=== PATIENT | female | born 1975 | race Asian ===

== ENCOUNTER 2018-03-31 12:00 | Inpatient (IN) | payer BC ==
[2018-03-31] MEDS ORDERED: ELECTROLYTE-148 SOLN 1,000 ML IV SCH ×2 (15:45)
[2018-03-31] MEDS ORDERED: ELECTROLYTE-148 SOLN 500 ML IV ONE (15:45)
[2018-03-31] MEDS ORDERED: PROMETHAZINE HCL 25 MG/1 ML VIAL IVPUSH ONE (15:47)
[2018-03-31] MEDS ORDERED: BUTORPHANOL TARTRATE 1 MG/ML VIAL IVPUSH ONE (15:47)
--- NOTE | 2018-03-31 15:53 | HP ---
Past Medical History - Admission History of Present Illness: 42 yo @ 38 6/7 wks by first trimester ultrasound, EDC 04/08/2018 complicated by: 1. AMA - declined genetic testing, normal level 2 ultrasound 2. Hx/o Asthma, mild intermittent Patient presents with chief complaint of contractions, which began 2 days ago. She reports increase in intensity and frequency earlier this AM. She reports movement, denies leakage of fluid or vaginal bleeding. History Source: Patient Limitations to Obtaining History: No Limitations - Past Medical History Cardiovascular: No: HTN Pulmonary: Yes: Asthma (albuterol PRN) Gastrointestinal: No: GERD ...: 6 ...Para: 3 ...Term: 3 ...: 0 ...Spon : 2 ...Induced : 0 ...LMP: 07/18/17 ... Weeks Gestation by Dates: 36.4 ...EDC by Dates: 04/24/18 ...EDC by Sono: 04/08/18 Heme/Onc: No: Anemia - Past Surgical History Past Surgical History: Yes: None Hx Myomectomy: No Hx Transabdominal Cerclage: No - Smoking History Smoking history: Never smoked Have you smoked in the past 12 months: No - Alcohol/Substance Use Hx Alcohol Use: No History of Substance Use: reports: None - Social History History of Recent Travel: No Home Medications - Allergies Allergies/Adverse Reactions: Allergies Allergy/AdvReac Type Severity Reaction Status Date / Time No Known Allergies Allergy Verified 03/31/18 13:30 - Home Medications Home Medications: Ambulatory Orders Ferrous Sulfate [Feosol] 325 mg PO DAILY 03/31/18 Vitamins (Sjr) - 1 tab PO DAILY 03/31/18 Family Disease History - Family Disease History Family History: Denies Review of Systems - Review of Systems Constitutional: reports: No Symptoms Neck: reports: No Symptoms Cardiovascular: reports: No Symptoms Respiratory: reports: No Symptoms Gastrointestinal: reports: No Symptoms Genitourinary: reports: No Symptoms Musculoskeletal: reports: No Symptoms Integumentary: reports: No Symptoms Neurological: reports: No Symptoms Endocrine: reports: No Symptoms Hematology/Lymphatic: reports: No Symptoms Psychiatric: reports: No Symptoms Physical Exam - Maternity Vital Signs: Vital Signs Temperature 97.8 F 03/31/18 12:40 Pulse Rate 83 03/31/18 12:40 Respiratory Rate 20 03/31/18 12:40 Blood Pressure 98/74 03/31/18 12:40 O2 Sat by Pulse Oximetry (%) Constitutional: Yes: Well Nourished, No Distress, Calm HENT: Yes: Atraumatic Cardiovascular: Yes: Regular Rate and Rhythm Lungs: Clear to auscultation - Abdominal Exam/OB Fundal Height: 40 Number of Fetuses: Single Presentation: Vertex Contractions: Yes Regularity: Regular Intensity: Mod/Strong Monitor Mode: External Heart Rate (range): 135 Accelerations: Non-Uniform Decelerations: None - Vaginal Exam/OB Vaginal Bleediing: No Dilatation (cm): 6 Amniotic Membrane Status: Intact Presentation: Vertex/Position Station: -3 - Physical Exam Edema: No Psychiatric: Yes: Alert, Oriented - Labs Lab Results: PNL: HIV neg; Hep B negative; Rubella Immune; GC/CT negative; GBS negative; GCT WNL; RPR NR Hemorrhage Risk Assessment - Risk Factors Medium Risk Factors: Yes: None High Risk Factors: Yes: None Risk Score: 1 Risk Level: Medium Risk Assessment/Plan 42 yo P3 in active labor 1. Admit to L&D 2. Consents reviewed and signed 3. GBS negative 4. Category I FHT 5. Will offer pain medication upon patient requet
[2018-03-31 15:57] VITALS: BMI 30.8
[2018-03-31 16:40] LABS: BASO % 0.2 % (0-2.0); EOS % 0.6 % (0-4.5); HEMOGLOBIN 10.8 GM/dL (10.7-15.3); LYMPH % 16.1 % (8-40); MCH 29.1 pg (25.7-33.7); MCHC 34.9 g/dl (32.0-36.0); MEAN CELL VOLUME 83.5 fl (80-96); MEAN PLT VOLUME 9.1 fl (7.5-11.1); MONO % 5.7 % (3.8-10.2); NEUT % 77.4 % (42.8-82.8); PLATELET COUNT 190 K/MM3 (134-434); RBC 3.71 M/mm3 (3.60-5.2); RDW 16.2 % (11.6-15.6); WHITE BLOOD COUNT 8.2 K/mm3 (4.0-10.0)
[2018-03-31 16:47] LABS: INR 1.04 (0.82-1.09); PROTHROMBIN TIME (PATIENT) 11.7 SEC (9.7-13.0)
[2018-03-31 16:49] LABS: ACTIVATED PTT 29.8 SECONDS (26.9-34.4)
[2018-03-31] MEDS ORDERED: FENTANYL/BUPIVACAINE/NS/PF - PCEA - 50 ML DISP.SYRIN EP ONE (16:50)
[2018-03-31 17:53] LABS: ANION GAP 10 (8-16); BLOOD UREA NITROGEN 6 mg/dL (7-18); CALCIUM 8.2 mg/dL (8.5-10.1); CHLORIDE 107 mmol/L (98-107); CO2 22 mmol/L (21-32); CREATININE 0.5 mg/dL (0.55-1.02); GLUCOSE,RANDOM 89 mg/dL (74-106); POTASSIUM 3.8 mmol/L (3.5-5.1); SODIUM 139 mmol/L (136-145)
[2018-03-31] MEDS ORDERED: BISACODYL 10 MG SUPP.RECT RC PRN (18:14)
[2018-03-31] MEDS ORDERED: METHYLERGONOVINE MALEATE 0.2 MG/1 ML AMP IM PRN (18:14)
[2018-03-31] MEDS ORDERED: ACETAMINOPHEN 325 MG TABLET (FP) PO PRN (18:14)
[2018-03-31] MEDS ORDERED: BENZOCAINE 28 GM HEMORRHOIDAL OINTMENT TP PRN (18:14)
[2018-03-31] MEDS ORDERED: IBUPROFEN 600 MG TABLET (FP) PO PRN (18:14)
[2018-03-31] MEDS ORDERED: oxyCODONE HCL 5 MG TABLET PO PRN (18:14)
[2018-03-31] MEDS ORDERED: WITCH HAZEL 50% (TUCKS) 40 PAD/JAR PAD TP PRN (18:14)
[2018-03-31] MEDS ORDERED: BENZOCAINE 20% 57 GM BOTTLE TP PRN (18:14)
[2018-03-31] MEDS ORDERED: OXYTOCIN 20 UNITS in 0.9% NS 20 UNIT/1,000 ML INFUS.BAG IV SCH (18:15)
--- NOTE | 2018-03-31 18:18 | PN ---
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 Weight and length unknown at this time. Head delivered spontaneously tight nuchal cord noted, shoulders and body delivered through without difficulty. Infant with spontaneous cry and placed on mother's abdomen. Nose and mouth was bulb suctioned. Cord was clamped and cut. Perineum and vagina examined, a second laceration was noted and repaired in the usual fashion. Rectal exam revealed no sutures in rectum. Placenta was delivered spontaneously and intact. 20 units of pitocin in 1 L IVF was given. All counts correct x 2. Mother and infant stable in LDR. EBL 400cc.
[2018-04-01 09:05] LABS: BASO % 0.2 % (0-2.0); EOS % 0.3 % (0-4.5); HEMATOCRIT 27.4 % (32.4-45.2); HEMOGLOBIN 9.2 GM/dL (10.7-15.3); MCH 28.7 pg (25.7-33.7); MCHC 33.6 g/dl (32.0-36.0); MEAN CELL VOLUME 85.4 fl (80-96); MEAN PLT VOLUME 8.8 fl (7.5-11.1); MONO % 7.3 % (3.8-10.2); NEUT % 79.2 % (42.8-82.8); PLATELET COUNT 154 K/MM3 (134-434); RBC 3.21 M/mm3 (3.60-5.2); RDW 16.2 % (11.6-15.6); WHITE BLOOD COUNT 11.4 K/mm3 (4.0-10.0)
[2018-04-01] MEDS: PRENATAL VITAMINS W/ FOLIC ACID TABLET (FP) PO SCH (09:31)
--- NOTE | 2018-04-01 09:40 | PN ---
Post Progress Note - Subjective Subjective: Patient without acute complaints. Reports tolerating oral intake without nausea or vomiting. Ambulating without dizziness. Denies fevers or chills. Pain well controlled with oral pain medication. without difficulty. Passing flatus. Type of Delivery: Vital Signs: Vital Signs Temperature 98.1 F 03/31/18 21:00 Pulse Rate 66 03/31/18 21:00 Respiratory Rate 20 03/31/18 21:00 Blood Pressure 113/73 03/31/18 21:00 O2 Sat by Pulse Oximetry (%) 100 03/31/18 18:45 Breast Exam: Yes: Soft Uterus: Yes: Fundus Firm, Fundus below umbilicus Abdomen/GI: Yes: Abdomen soft, Passing flatus, Tolerating PO. No: Abdominal Distention, Tender Lochia: Yes: Serosa Lochia, amount: Small Extremities: Yes: Calves non-tender. No: Edema Perineum: Yes: Laceration Activity: Ambulating - Labs Labs: CBC WBC 8.2 K/mm3 (4.0-10.0) 03/31/18 15:00 RBC 3.71 M/mm3 (3.60-5.2) 03/31/18 15:00 Hgb 10.8 GM/dL (10.7-15.3) D 03/31/18 15:00 Hct 31.0 % (32.4-45.2) L 03/31/18 15:00 MCV 83.5 fl (80-96) 03/31/18 15:00 MCH 29.1 pg (25.7-33.7) 03/31/18 15:00 MCHC 34.9 g/dl (32.0-36.0) 03/31/18 15:00 RDW 16.2 % (11.6-15.6) H 03/31/18 15:00 Plt Count 190 K/MM3 (134-434) D 03/31/18 15:00 MPV 9.1 fl (7.5-11.1) 03/31/18 15:00 Absolute Neuts (auto) 6.4 # 03/31/18 15:00 Neutrophils % 77.4 % (42.8-82.8) 03/31/18 15:00 Lymphocytes % 16.1 % (8-40) 03/31/18 15:00 Monocytes % 5.7 % (3.8-10.2) 03/31/18 15:00 Eosinophils % 0.6 % (0-4.5) 03/31/18 15:00 Basophils % 0.2 % (0-2.0) 03/31/18 15:00 Nucleated RBC % 0 % (0-0) 03/31/18 15:00 Assessment/Plan 42 yo PPD # 1 s/p , afebrile, vital signs stable, doing well 1. Continue routine care. 2. AM CBC with mild anemia; patient asymptomatic at this time. 3. Rh positive status, no rhogam indicated. 4. Encourage ambulation 5. Continue oral pain medication 6. Anticipate discharge home day #2
--- NOTE | 2018-04-01 09:53 | DS ---
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 Signs: Vital Signs Temperature 98.1 F 03/31/18 21:00 Pulse Rate 66 03/31/18 21:00 Respiratory Rate 20 03/31/18 21:00 Blood Pressure 113/73 03/31/18 21:00 O2 Sat by Pulse Oximetry (%) 100 03/31/18 18:45 Labs: CBC, BMP 04/01/18 06:00 03/31/18 15:00 Delivery - Delivery Vaginal Delivery: No Problems Type of Anesthesia: Local Episiotomy/Laceration: 2nd degree EBL (cc): 400 Delivery, Single - Stages of Labor Date 1st Stage Initiatied: 03/31/18 Time 1st Stage Initiated: 02:30 Date 2nd Stage Initiated: 03/31/18 Time 2nd Stage Initiated: 17:15 Date of Delivery: 03/31/18 Time of Delivery: 17:49 Time Placenta Delivered: 18:00 Placenta: Yes: Spontaneous, Expressed - Condition 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 Progressed to deliver viable male via . PPD # 1 patient ambulated, voiding, passing gas, tolerating oral intake and with adequate pain control. Noted to have mild asymptomatic anemia She fulfilled all criteria for discharge PPD #2 Condition: Good - Instructions Diet, Activity, Other Instructions: Physical activity Resume your normal everyday activity as tolerated no heavy lifting or exercise until seen by your surgeon. You may walk unlimited rajendra of and climb stairs. You may resume driving the car when you feel safe and comfortable behind the wheel. No sexual activity as instructed. Diet There are no dietary restrictions. Eat healthy, high-fiber foods. Drink 6 to 8 glasses of liquid each day. This will assist in keeping your bowels are regular. Pain management You may take Tylenol or acetaminophen or Ibuprofen (for example, Motrin, Advil etc.) from my pain prescription medication is ordered should be taken as prescribed for moderate to severe pain. Call MD for any of the following: Severe pain not relieved by medication Fever of 101 or higher Excessive bleeding or drainage on dressing Inability to urinate Referrals: Sunitha Jose MD [Staff Physician] - Disposition: HOME - Home Medications Comprehensive Discharge Medication List: Ambulatory Orders Ferrous Sulfate [Feosol] 325 mg PO DAILY 03/31/18 Vitamins (Sjr) - 1 tab PO DAILY 03/31/18
[2018-04-01] MEDS ORDERED: DIPHTH,PERTUSS(ACELL),TET 0.5 ML DISP.SYRIN IM ONE (10:00)
[2018-04-01] MEDS ORDERED: SENNOSIDES/DOCUSATE COMBO (SENNA PLUS) TABLET (UD) PO PRN (22:00)
--- NOTE | 2018-04-02 06:54 | PN ---
Progress Note (short form) - Note Progress Note: ppd 2 doing well, ambulating, has hemorrhoids CBC, BMP 04/01/18 06:00 03/31/18 15:00 Last Vital Signs Temp Pulse Resp BP Pulse Ox 98.4 F 87 20 131/84 100 04/01/18 21:00 04/01/18 21:00 04/01/18 21:00 04/01/18 21:00 03/31/18 18:45 abdomen soft, no cva uterus firm, non tender lochia mild no calf tenderness plan d/c home, tucks prn sitz bath ambulation rto 4 weeks
[2018-04-02] MEDS: PRENATAL VITAMINS W/ FOLIC ACID TABLET (FP) PO SCH (09:24)
[2018-04-02 11:14] VITALS: BP 109/55; PULSE 82; TEMP 98
== END 2018-04-02 13:15 | disposition home or self-care (01) | DRG 775 ==
LOC: JDEL 12:00 → JLDR 15:18 → J3W 21:00
PROVIDERS: ADMIT Obstetrics & Gynecology; ATTEND Obstetrics & Gynecology
PROC: 10E0XZZ Delivery of Products of Conception, External Approach (ICD-10-PCS; principal; 2018-03-31)
PROC: 0KQM0ZZ Repair Perineum Muscle, Open Approach (ICD-10-PCS; 2018-03-31)
DX: O69.1XX0 Labor and delivery complicated by cord around neck, with compression, not applicable or unspecified (principal); O36.0930 Maternal care for other rhesus isoimmunization, third trimester, not applicable or unspecified; O22.43 Hemorrhoids in pregnancy, third trimester; O70.1 Second degree perineal laceration during delivery; O26.893 Other specified pregnancy related conditions, third trimester; J45.909 Unspecified asthma, uncomplicated; Z3A.38 38 weeks gestation of pregnancy; Z37.0 Single live birth
CPT/HCPCS: 36415; 59025; 59409; 80048; 85025; 85610; 85730; 86593; 86850; 86900; 86901; 90715